=== PATIENT | male | born 1995 | race Caucasian/White ===

== ENCOUNTER 2022-10-13 09:13 | Emergency (ER) | payer OTHER, SELFPAY ==
[2022-10-13 09:13] VITALS: BP 144/84; PULSE 98; RESP 16; TEMP 36.9; O2SAT 98
[2022-10-13 09:15] VITALS: BP 144/84; PULSE 98; RESP 16; TEMP 36.9; O2SAT 98
--- NOTE | 2022-10-13 09:31 | ED.EYEPROB ---
HPI - Eye Problem General Chief complaint: Eye Problems Stated complaint: possible pink eye Time Seen by Provider: 10/13/22 09:21 Source: patient Mode of arrival: ambulatory Limitations: no limitations History of Present Illness HPI Narrative: PATIENT IS A 27-YEAR-OLD [employer] COMPLAINS OF LEFT EYE REDNESS SINCE YESTERDAY WOKE UP WITH THE DISCHARGE THIS MORNING. DENIES ANY VISUAL COMPLAINTS. OR ANY OTHER COMPLAINTS EXCEPT FOR SOME CONGESTION HE HAS HAD FOR THE LAST FEW DAYS. HE HAD A COUGH ABOUT 3 DAYS AGO WHICH IS RESOLVED. HE WAS NEGATIVE FOR COVID. Duration: constant Location: left eye Eye Symptoms: redness, pain, foreign body sensation, discharge, decreased vision, blurry vision and photophobia Place: home Mechanism: direct trauma Related Data Allergies Allergy/AdvReac Type Severity Reaction Status Date / Time No Known Allergies Allergy Verified 10/13/22 09:24 Review of Systems Review of Systems: All systems reviewed & are unremarkable except as noted in HPI and below Constitutional: Constitutional: Denies fever(s) Eyes: Eyes: Reports as per HPI and Reports no additional eye complaints ENT: Reports as per HPI, Denies dizziness, Reports nasal congestion and Denies sore throat Cardiovascular: Cardiovascular: Denies chest pain Respiratory: Respiratory: Reports as per HPI, Reports no additional respiratory complaints and Denies chest congestion Gastrointestinal: Gastrointestinal: Reports no additional gastrointestinal complaints, Denies diarrhea, Denies nausea and Denies vomiting Genitourinary: Genitourinary: Reports no additional male genitourinary complaints Musculoskeletal: Musculoskeletal: Reports no additional musculoskeletal complaints Integumentary/Breasts: Skin/Breast: Reports system reviewed and no additional complaints, except as docu Neurologic: Reports system reviewed and no additional complaints, except as documented PMFSH Social History Social History Smoking status: Unknown if ever smoked Exam Narrative: WHITE MALE HEALTHY APPEARING NO APPARENT DISTRESS WELL NOURISHED ARE ALL ORDERED AND ORIENTED X4. EYES LEFT CONJUNCTIVA ARE INJECTED WITHOUT EXUDATE. SCLERA NONICTERIC. EXTRAOCULAR MOVEMENTS ARE INTACT OROPHARYNX IS CLEAR WITH MOIST MUCOUS MEMBRANES NECK SUPPLE NO LYMPHADENOPATHY. LUNGS ARE CLEAR WITHOUT WHEEZE RALES OR RHONCHI. HEART IS REGULAR RATE RHYTHM WITHOUT MURMURS GALLOPS OR RUBS. NEUROLOGICAL HE IS ALERT AND ORIENT X4 MOTOR AND SENSORY GROSSLY INTACT Const: Limitations: no limitations Course Vital Signs Vital signs: Vital Signs Temperature 36.9 C 10/13/22 09:13 Pulse Rate 98 10/13/22 09:13 Respiratory Rate 16 10/13/22 09:13 Blood Pressure 144/84 H 10/13/22 09:13 Pulse Oximetry 98 10/13/22 09:13 Oxygen Delivery Room Air 10/13/22 09:13 Temperature 36.9 C 10/13/22 09:15 Pulse Rate 98 10/13/22 09:15 Respiratory Rate 16 10/13/22 09:15 Blood Pressure 144/84 H 10/13/22 09:15 Pulse Oximetry 98 10/13/22 09:15 Oxygen Delivery Room Air 10/13/22 09:15 MDM - Eye Problem MDM Narrative Medical decision making narrative: 27-YEAR-OLD MALE PRESENTED WITH LEFT EYE REDNESS CONJUNCTIVITIS WITH YELLOW DISCHARGE THIS MORNING WITHOUT ANY OTHER SYMPTOMS OTHER THAN NASAL CONGESTION. THIS IS CONJUNCTIVITIS MOST LIKELY VIRAL ALTHOUGH COULD BE BACTERIAL SO WILL TREAT WITH SODIUM SULAMYD OPHTHALMIC SOLUTION 10%. INSTRUCTED TO TAKE 2 DROPS EVERY 0 HOURS WILL WEARING TODAY AND THEN 2 DROPS 4 TIMES A DAY FOR THE NEXT 9 DAYS. HE IS ALSO TO TREAT BOTH EYES. USE WARM COMPRESS BEFORE PUTTING THE DROPS IN AND WASHES HANDS BEFORE AND AFTER PUTTING THE DROPS IN. Differential Diagnosis Differential diagnosis: Likely conjunctivitis; Unlikely corneal abrasion, hyphema, subconjunctival hemorrhage, glaucoma or ruptured globe Discharge Plan Discharge Clinical Impression: Bacterial conjunctivitis Patient Disposition: Home, Self-Care Condition:
== END 2022-10-13 09:55 | disposition home or self-care (01) ==
PROVIDERS: Emergency Provider Emergency Medicine
DX: H10.9 Unspecified conjunctivitis (principal)
CPT/HCPCS: 99283

== ENCOUNTER 2023-07-27 03:17 | Emergency (ER) | payer OTHER, SELFPAY ==
[2023-07-27] VITALS (12 sets, daily range): BP systolic 132–154; BP diastolic 77–90; PULSE 95–180; RESP 0–19; TEMP 36.6–36.7; O2SAT 97–100
--- NOTE | 2023-07-27 03:38 | ECG_ITS ---
Measurements Intervals [place] Rate: 182 P: AL: 0 QRS: 46 QRSD: 83 T: 32 QT: 242 QTc: 422 Interpretive Statements SUPRAVENTRICULAR TACHYCARDIA/SUSPECT AV NODE REENTRY NONSPECIFIC ST & T-WAVE ABNORMALITY ABNORMAL ECG Electronically Signed On 07-27-2023 7:12:39 CDT by Timi Kessler M.D.
--- NOTE | 2023-07-27 03:42 | ECG_ITS ---
Measurements Intervals [place] Rate: 106 P: 44 FL: 152 QRS: 43 QRSD: 94 T: 55 QT: 330 QTc: 439 Interpretive Statements SINUS TACHYCARDIA ABNORMAL RHYTHM ECG COMPARED TO ECG 07/27/2023 03:23:50 SVT HAS BEEN TERMINATED AND REPLACED BY SINUS RHYTHM Electronically Signed On 07-27-2023 7:13:04 CDT by Timi Kessler M.D.
--- NOTE | 2023-07-27 03:45 | ED.GENADULT ---
HPI - General Adult General Chief complaint: Chest Pain Stated complaint: heart palpitations Time Seen by Provider: 07/27/23 03:38 History of Present Illness HPI narrative: Yovani is a 28M with a PMH of obesity and family history of NE and afib that presented to the ED with palpitations and a racing heart for 15 minutes before coming to the ED. He denies any chest pain or dyspnea, N/V or lightheadedness. He gets these episodes about every 2 weeks but they usually only last 15 seconds or so. Related Data Allergies Allergy/AdvReac Type Severity Reaction Status Date / Time No Known Allergies Allergy Verified 07/27/23 03:49 Review of Systems Review of Systems: All systems reviewed & are unremarkable except as noted in HPI and below [facility] Social History Social History Smoking status: Unknown if ever smoked Exam Const: General: ill appearing acutely Nutritional Appearance: obese Orientation/consciousness: patient oriented x3 Limitations: no limitations HENMT: Head: normal to inspection Ears: external ears normal Face/Nose/Sinus: Normal external nose present Face and sinus: normal facial exam Eyes: Conjunctivae: conjunctivae normal Neck: Neck: normal visual inspection Chest: Chest palpation & inspection: normal inspection of the chest Resp: Effort & Inspection: tachypneic Auscultation: clear to auscultation bilaterally Cardio: Rate: tachycardic Rhythm: regular rhythm GI: Inspection: non-distended Skin: General skin exam: normal color Neuro: General: patient oriented x3 and moves all extremities Cranial nerves: Yes Nystagmus not present Extrem: General: normal to inspection Psych: Mental Status: mental status grossly normal Course Course Emergency Course: EKG done by staff immediately showed SVT with a rate of 182. The crash cart was brought to patient room and pads were placed. Vagal maneuvers were attempted without success. At 0332 5mg of adenosine was given without effect. Shortly after he was given 12mg of adenosine. Repeat EKG showed sinus tachycardia with a rate of 106, normal axis and no ST elevation/depression. He was very nervous over the episode so he was given some ativan. He continued to have some sinus tachycardia so he was given 50 of metoprolol. [facility] was contacted for consult for potential transfer. I spoke with Dr. Castanon who recommended outpatient treatment. After this vitals remained stable while in the Ed. Critical Care Time Critical Care Time Critical Care Time: Yes Total Critical Care Time: 15 Discharge Plan Discharge Clinical Impression: Nonsustained supraventricular tachycardia Patient Disposition: Home, Self-Care Condition: Stable Instructions: Supraventricular Tachycardia (ED) Additional Instructions: Please follow up with your regular healthcare provider in the next couple days or return to the emergency department if symptoms return. You may also make an appointment with [facility] affiliated with [facility]. Their number is [phone]. Prescriptions: New metoprolol tartrate 25 mg tablet 25 mg PO BID Qty: 14 0RF metoprolol tartrate 25 mg tablet 12.5 mg PO BID Qty: 14 0RF Follow-up/Referrals: UNKNOWN,DOCTOR [Primary Care Provider] -
[2023-07-27] MEDS: LORazepam INJ (*CRX) 2 MG/ML VIAL 1 MG IV PUSH (03:46)
--- NOTE | 2023-07-27 03:48 | PC.NURSE ---
Pt arrived with a fast heart beat. Pt was put on the monitor and 1st EKG was done at 0323. Then we did a 2nd EKG @ 0336 after Meds were administered to slow down fast heart rate.
--- NOTE | 2023-07-27 03:57 | PC.NURSE ---
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 18g IV established in right AC. Provider at bedside. EKG was performed and showed pt was in SVT. Pt was placed on defibrillator. Dr ordered 6mg of adenosine and it was given and pt was still found to be in SVT, 12mg of adenosine was ordered and it was given. Pt's HR began to come down, HR came down to low 100s. Another EKG was performed after medications were given which showed sinus tachycardia.
[2023-07-27] MEDS: METOPROLOL TARTRATE 50 MG TAB 25 MG PO (04:15)
[2023-07-27 04:28] LABS: Basophils Absolute Auto 0.02 K/mm3 (0.00-0.10); Basophils Percent Auto 0.3 % (0.0-1.0); Eosinophils Absolute Auto 0.11 K/mm3 (0.02-0.50); Eosinophils Percent Auto 1.7 % (1.0-6.0); Hematocrit 43.2 % (40.0-54.0); Hemoglobin 14.6 g/dL (14.0-18.0); Immature Granulocyte Absolute 0.06 K/mm3 (0.00-0.00); Immature Granulocyte Percent A 0.9 % (0.0-0.0); Lymphocytes Absolute Auto 2.81 K/mm3 (1.10-4.50); Lymphocytes Percent Auto 43.6 % (18.0-42.0); Mean Corpuscular HGB Conc 33.8 g/dL (32.0-36.0); Mean Corpuscular Hemoglobin 29.6 pg (27.0-31.0); Mean Corpuscular Volume 87.6 fL (78.0-102.0); Mean Platelet Volume 10.1 fl (8.7-11.0); Monocytes Absolute Auto 0.63 K/mm3 (0.10-0.90); Monocytes Percent Auto 9.8 % (2.0-11.0); Neutrophils Absolute Auto 2.8 K/mm3 (1.7-7.2); Neutrophils Percent Auto 43.7 % (50.0-70.0); Platelet Count Result 214 K/mm3 (150-420); Red Blood Count 4.93 M/mm3 (4.70-6.10); Red Cell Distribution Width 13.1 % (11.6-14.4); White Blood Count 6.5 K/mm3 (4.8-10.8)
[2023-07-27 04:32] LABS: Alanine Aminotransferase 51 U/L (16-63); Albumin Level 2.9 g/dL (3.4-5.0); Alkaline Phosphatase 90 U/L (46-116); Anion Gap 9 mmol/L (8-16); Aspartate Amino Transferase 33 U/L (15-37); Bilirubin,Total 0.7 mg/dL (0.00-1.00); Blood Urea Nitrogen 20 mg/dL (7-18); Calcium 8.6 mg/dL (8.5-10.1); Carbon Dioxide 28 mmol/L (21-32); Chloride 104 mmol/L (98-108); Estimated CRCL calculation 147 ml/min; Estimated Glomerular Filt Rate > 60; Ethanol < 3 mg/dL (0-6); Glucose 98 mg/dL (70-99); Magnesium 2.2 mg/dL (1.8-2.4); NT Pro B Type Natriuretic Pept 19 pg/mL (0-125); Osmolality Calculated 294 mOsm/kg (285-295); Potassium 3.6 mmol/L (3.5-5.1); Sodium 141 mmol/L (136-145); Thyroid Stimulating Hormone 7.97 uIU/mL (0.36-3.74); Total Protein 6.6 g/dL (6.4-8.2); Troponin I 8.2 ng/L (0.00-60.4)
--- NOTE | 2023-07-27 14:37 | PC.NURSE ---
Rn spoke with Dr. Smith, patient is to get the Metoprolol Tartrate 25mg, 1 po bid. will call pharmacy to clarify.
== END 2023-07-27 05:18 | disposition home or self-care (01) ==
PROVIDERS: Emergency Provider Family Medicine
DX: I47.19 Other supraventricular tachycardia (principal)
CPT/HCPCS: 36415; 80053; 80307; 83735; 83880; 84443; 84484; 85025; 93005; 96374; 96375; 99284; A9270; J0153; J2060